=== PATIENT | female | born 1955 | race Caucasian/White ===

== ENCOUNTER → 2016-05-16 | Outpatient (CLI) | payer BC ==
[~2016-05-16] MED LIST: ASPI-587 PO; CHLS4PK PO; EST05TD TD; ESTR1PAT32 TD; OMEG1CAP74 PO; PRAV20TA PO; VALS1TAB43 PO; VALS1TAB80 PO; VLS80C PO
--- OUTSIDE RECORDS SUMMARY | 2016-05-16 14:59 | XMS REPORT | Continuity of Care Document ---
Author Author [facility] Organization [facility] Address Unknown Phone Unavailable Care Team Providers Care Accounts Payable Accountant Name Role Phone LONG ARROYO MD PCP Insurance Providers Payer Name Policy Number Subscriber Name Relationship [facility] [id number] Kenrick Schaffer I 01 Advance Directives Directive Response Recorded Date/Time Advance Directives No 08/26/14 7:25am Health Care Power of Pillowcase Sewer No 08/26/14 7:25am Organ Donor Yes 08/26/14 7:25am Resuscitation Status Full Code 08/26/14 7:25am Problems No known problems or medical conditions. Medications Medication Dose Route Sig Days/Qty Instructions Order Date Discontinued Date Status HCTZ/Valsartan 1 Each PO DAILY 07/03/10 07/04/10 Discontinued Estradiol 0.05 Mg TD Q7D 07/03/10 08/23/14 Discontinued Cholestyramine Resin 1 Pkt PO TWICE A DAY 30 Qty 07/04/10 08/23/14 Discontinued Valsartan 160 Mg PO DAILY 07/04/10 08/23/14 Discontinued Estradiol (Climara) 1 Each TD TWICE WEEKLY CHANGE ON FRIDAY AND Saturdays08/23/14 Active Valsartan/Hydrochlorothiazide 1 Each PO DAILY 08/23/14 Active Pravastatin Sodium 20 Mg PO BEDTIME 08/23/14 Active Aspirin 81 Mg PO DAILY 08/23/14 Active Stollings-3/Dha/Epa/Fish Oil 2,000 Mg PO DAILY 08/23/14 Active Social History Social History Problem Response Recorded Date/Time Alcohol Use Occasionally Uses 08/26/2014 7:25am Recreational Drug Use No 08/26/2014 7:25am Recent Foreign Travel No 08/26/2014 7:25am Smoking Status Former Smoker 08/26/2014 7:25am Query Response Start Date Stop Date Smoking Status Former Smoker 08/12/2014 Hospital Discharge Instructions No hospital discharge instructions. Plan of Care No plan of care. Functional Status No functional status results. Allergies, Adverse Reactions, Alerts Allergen Type Severity Reaction Status Last Updated No Known Drug Allergies Active 07/03/10 Immunizations No immunization records. Vital Signs Acute Vital Signs Vital Response Date/Time Temperature (Fahrenheit) 96.5 degrees F (97.6 - 99.5) Temperature (Calculated Celsius) 35.59305 degrees C (36.4 - 37.5) Temperature Source Temporal Pulse Rate (adult) 51 bpm (60 - 90) Respiratory Rate 16 bpm (12 - 24) O2 Sat by Pulse Oximetry 98 % (88 - 100) Blood Pressure 131/71 mm Hg Pain Pain Intensity 0 Height (Feet) 5 feet Height (Inches) 6.00 inches Height (Calculated Centimeters) 167.978978 cm Weight (Pounds) 173 pounds Weight (Calculated Grams) 87482.481 gm Weight (Calculated Kilograms) 78.740113 kilograms Calculated BMI 28.79 Results Laboratory Results Test Name Result Units Flags Reference Collection Date/Time Result Date/ Time Comments Sodium Level 134 MMOL/L L 135-145 08/23/2014 8:25am 08/23/2014 9:06am Potassium Level 3.7 MMOL/L 3.6-5.0 08/23/2014 8:25am 08/23/2014 9:06am Chloride Level 101 MMOL/L 98-107 08/23/2014 8:25am 08/23/2014 9:06am Carbon Dioxide Level 23 MMOL/L 21-32 08/23/2014 8:25am 08/23/2014 9: 06am Blood Urea Nitrogen 29 MG/DL H 7-18 08/23/2014 8:25am 08/23/2014 9:06am Creatinine 1.37 MG/DL H 0.60-1.30 08/23/2014 8:25am 08/23/2014 9:06am BUN/Creatinine Ratio 21 08/23/2014 8:25am 08/23/2014 9:06am Estimat Glomerular Filtration Rate 40 08/23/2014 8:25am 08/23/2014 9:06am GFR INTERPRETIVE DATA UNITS FOR ESTIMATED GFR (eGFR): mL/min/1.73 M2 REFERENCE RANGE FOR ESTIMATED GFR (eGFR) eGFR NORMAL eGFR >60 MODERATELY DECREASED eGFR 30-59 SEVERLY DECREASED eGFR 15-29 KIDNEY FAILURE <15 (OR DIALYSIS) Glucose Level 101 MG/DL 70-105 08/23/2014 8:25am 08/23/2014 9:06am Calcium Level 9.7 MG/DL 8.5-10.1 08/23/2014 8:25am 08/23/2014 9:06am Procedures Procedure Status Date Provider(s) Excision of lesion completed 08/26/14 SULEMAN LEON MD Tracing only of electrocardiogram completed 08/23/14 FIDEL DEJESUS DO Encounters Encounter Location Date/Time Registered [facility] 08/26/14 7:27am Registered Clinic [facility] 08/23/14 7:59am
--- NOTE | 2016-05-17 18:23 | Diagnostic Imaging Report ---
Bilateral screening mammogram. The current study was also evaluated with a Computer Aided Detection (CAD) system. INDICATION: Screening. No current complaints stated on the questionnaire. COMPARISON: 02/27/2015. FINDINGS: The breasts are composed of scattered fibroglandular densities. There are no developing masses, architectural distortion, or suspicious cluster of calcification. Allowing for technique and positional differences, no suspicious change is seen. IMPRESSION: No significant change. ACR BI-RADS Category 2: Benign findings. Result letter will be mailed to the patient. Note: At least 10% of breast cancer is not imaged by mammography. Dictated by: Dictated on workstation # [id number]
== END ==
LOC: RAD 14:56
PROVIDERS: ATTEND Nurse Practitioner Family
DX: Z12.31 Encounter for screening mammogram for malignant neoplasm of breast (principal)
CPT/HCPCS: 77067

== ENCOUNTER → 2016-09-12 | Outpatient (CLI) | payer BC ==
--- NOTE | 2016-09-12 19:46 | Diagnostic Imaging Report ---
EXAMINATION: Bilateral renal ultrasound. INDICATION: Chronic kidney disease. FINDINGS: The right kidney is 12.1 and the left kidney is 9.2 cm in length. There is no hydronephrosis or focal lesion seen. The left kidney demonstrates significant cortical atrophy. The urinary bladder appears unremarkable with the right side urine jet seen. The left side jet is not seen. IMPRESSION: Significant asymmetric cortical atrophy in the left kidney. Dictated by: Dictated on workstation # [id number]
== END ==
LOC: RAD 13:42
PROVIDERS: ATTEND Nurse Practitioner
DX: R80.9 Proteinuria, unspecified (principal); I12.9 Hypertensive chronic kidney disease with stage 1 through stage 4 chronic kidney disease, or unspecified chronic kidney disease; N18.3 Chronic kidney disease, stage 3 (moderate); E78.5 Hyperlipidemia, unspecified; E66.9 Obesity, unspecified; E87.1 Hypo-osmolality and hyponatremia; R73.01 Impaired fasting glucose
CPT/HCPCS: 76770

== ENCOUNTER → 2017-01-15 | Outpatient (CLI) | payer BC ==
--- NOTE | 2017-01-15 09:16 | Diagnostic Imaging Report ---
EXAMINATION: Renal vascular duplex ultrasound. INDICATION: Hypertension. FINDINGS: The right kidney is 11.3 and the left kidney is 7.3 cm in length. There is no hydronephrosis or focal lesion identified. The left kidney is small in size and demonstrates moderate cortical atrophy. The proximal left renal artery is obscured. The velocities at the mid and distal segments of the left renal artery are 88 and 85 cm/s. The right renal artery mid and distal segments are 75 and 121 cm/s. The resistive index in the right kidney is 0.63 to 0.66 and on the left side is 0.48. IMPRESSION: 1. Moderate atrophy of the left kidney. 2. The proximal renal arteries are obscured due to bowel gas bilaterally. Evaluation with CTA or MRA could be considered for better evaluation. Dictated by: Dictated on workstation # [id number]
== END ==
LOC: RAD 08:03
PROVIDERS: ATTEND Nurse Practitioner
DX: R80.9 Proteinuria, unspecified; E66.9 Obesity, unspecified; E78.5 Hyperlipidemia, unspecified; E87.1 Hypo-osmolality and hyponatremia; I12.9 Hypertensive chronic kidney disease with stage 1 through stage 4 chronic kidney disease, or unspecified chronic kidney disease; N18.3 Chronic kidney disease, stage 3 (moderate); R73.01 Impaired fasting glucose
CPT/HCPCS: 93975

== ENCOUNTER → 2020-01-28 | Outpatient (CLI) | payer BC ==
--- NOTE | 2020-01-28 13:05 | Diagnostic Imaging Report ---
PROCEDURE: US carotid duplex, bilateral. TECHNIQUE: Multiple real-time grayscale images were obtained over the carotid arteries in various projections, bilaterally. Additional spectral analysis and color Doppler duplex images were also obtained. INDICATION: Carotid bruit. There is mild plaquing noted throughout both carotid systems. Velocities are normal bilaterally. No velocity elevation or stenosis is seen apart from velocity elevation in the right and left external carotid arteries. This reaches 402 cm/s on the right and 203 cm/s on the left. Both vertebral arteries show antegrade flow. IMPRESSION: Ruto-rf-apltvqui bilateral carotid plaque. There is no evidence of a hemodynamically significant stenosis within either common or internal carotid arteries. Parameters based on the consensus panel Caal-Scale and Doppler ultrasound criteria published February 2003, Radiology, Volume 229. DOPPLER (peak systolic velocity M/S Right Left CCA 0.84 1.21 ICA Proximal 0.86 0.89 ICA Mid 1.08 1.12 ICA Distal 0.79 1.14 RATIO 1.3 0.9 ECA 4.02 2.03 VERT .31 .75 Dictated by: Dictated on workstation # [id number]
== END ==
LOC: CARD 11:39
PROVIDERS: ATTEND Family Medicine
DX: I11.9 Hypertensive heart disease without heart failure (principal)
CPT/HCPCS: 93306; 93880

== ENCOUNTER → 2020-05-31 | Outpatient (CLI) | payer BC ==
[~2020-05-31] VITALS: Ht 162 cm; Wt 84.0 kg
[~2020-05-31] MED LIST changes: +REGADENOSON 0.4 MG/5 ML SYR (LEXISCAN) IV ONE
[2020-05-31] MEDS: CATHETER FLUSH 10 ML SYR IV PRN ×2 (08:38→09:24)
[2020-05-31 09:22] VITALS: BP 158/85
--- NOTE | 2020-05-31 11:34 | Cardiology Stress Test Report ---
Stress Test Report Date of Procedure/Referring: Date of Procedure: May 31, 2020 PCP Dominic Laurent MD Admitting Physician Cesar Delacruz MD Indications: Chest pain Baseline Heart Rate: 75 Baseline Blood Pressure: Blood Pressure Systolic: 158 Blood Pressure Diastolic: 85 Baseline Vitals Vital Signs Date Time Temp Pulse Resp B/P (MAP) Pulse Ox O2 Delivery O2 Flow Rate FiO2 05/31/20 09:22 74 158/85 (109) 98 Baseline EKG: Baseline EKG: normal sinus rhythm Summary After explaining the procedure to the patient, she signed a consent and then brought to the stress nuclear laboratory. Patient received 0.4 mg Lexiscan for stress test, ECG, heart rate and blood pressure were monitored continuously. Resting and stress dose of radio tracer were injected, imaging was acquired and reviewed in short axis, horizontal long axis and vertical long axis views. TID: 1.12 SSS: 6 SDS: 3 EF: 76 1. Patient tolerated Lexiscan well, had mild chest pressure and shortness of breath after the injection, resolved spontaneously 2. No EKG changes noted during Lexiscan stress test 3. Breast attenuation with mild decreased uptake involving the mid to apical anterior wall and anterolateral wall with mild reversibility 4. Normal left ventricular size, EF 76 percent DOMINIC LAURENT MD May 31, 2020 11:33
== END ==
LOC: CARD 08:30
PROVIDERS: ATTEND Internal Medicine Cardiovascular Disease
DX: R07.9 Chest pain, unspecified (principal)
CPT/HCPCS: 78452; 93017; A9502

== ENCOUNTER 2020-06-07 09:00 | Day surgery (SDC) | payer BC ==
[~2020-06-07] VITALS: Ht 162 cm; Wt 86.0 kg
[2020-06-07] VITALS (10 sets, daily range): BP systolic 145–182; BP diastolic 67–101
[2020-06-07 07:20] LABS: HEMOGLOBIN 8.5 g/dL (11.5-16.0); MEAN PLATELET VOLUME 8.7 fL (9.0-12.2); WHITE BLOOD COUNT 3.5 10^3/uL (4.3-11.0)
[2020-06-07] MEDS: NS IV 1000 ML 1,000 ML IV SCH ×2 (07:22→09:19)
--- NOTE | 2020-06-07 07:32 | Diagnostic Imaging Report ---
Indication: Dyspnea, hypertension, coronary artery disease Upright chest shows normal heart size and vascularity. The lungs are clear. There is no effusion or pneumothorax. There is no bony abnormality. IMPRESSION: Normal chest. Dictated by: Dictated on workstation # [id number]
[2020-06-07 07:34] LABS: PROTHROMBIN TIME PATIENT 13.6 SEC (12.2-14.7)
[2020-06-07 07:43] LABS: BILIRUBIN,TOTAL 0.6 MG/DL (0.1-1.0); CREATININE SERUM 2.05 MG/DL (0.60-1.30); POTASSIUM 3.5 MMOL/L (3.6-5.0); TOTAL PROTEIN 7.8 GM/DL (6.4-8.2)
[~2020-06-07 09:00] MED LIST changes: +CHOL500049 PO; +DAPA5TAB PO; +DILT360C30 PO; +HEParin (CATH LAB) 2,000 ML IV ONE; +HYDR-3924 PO; +LIDOCAINE 1% INJ 20 ML 20 ML VIAL ONE; +MIDAZOLAM 5 MG/5 ML (VERSED) VIAL ONE; +NS IV 1000 ML 1,000 ML ONE; -REGADENOSON 0.4 MG/5 ML SYR (LEXISCAN) IV ONE; +fentaNYL INJECTION 100 MCG/2 ML AMP ONE
[2020-06-07] MEDS ORDERED: NITRO DRIP 25000 MCG/D5W 250 ML IV ONE (09:09)
[2020-06-07] MEDS ORDERED: HEParin 1000 UNIT/ML (10ML VIAL) FOR BOLUS ONE (09:09)
[2020-06-07] MEDS ORDERED: VERAPAMIL 5 MG/2 ML (CALAN) VIAL IV ONE (09:09)
[2020-06-07] MEDS ORDERED: NS IV 1000 ML 1,000 ML IV SCH (09:30)
--- NOTE | 2020-06-07 09:33 | Discharge Inst-Post CATH ---
Discharge Inst-CATH/EP Problems Reviewed?: Yes Post Cardiac Cath/EP D/C Inst Follow Up/Plan Appointment with Dr. HERNANDEZ's office in 4 weeks <b>CARDIAC CATH/EP PROCEDURE DISCHARGE INSTRUCTIONS</b> ACTIVITY * Go Home directly and rest. * Limit activity of the leg (or wrist if it was used) for 7 days including aerobics, swimming, jogging, bicycling, etc. * Restrict stair-climbing for 7 days if possible, if not, climb up with your non-cath leg, then bring together on the same step. * Avoid lifting, pushing, pulling or excessive movement of the affected extremity for 7 days. * Customary sexual activity may be resumed after 2 days-use caution not to use a position that strains or causes pain to the affected extremity. * No driving for 24 hours. * NO SMOKING. * Avoid straining for bowel movements for 7 days. * Gentle walking on level ground is allowed. * Returning to work will depend on the type of procedure and the results. Your doctor will discuss this with you. CALL YOUR DOCTOR FOR ANY OF THE FOLLOWING: *If bleeding from the puncture site occurs- Apply gentle pressure to site with clean cloth and call your doctor or EMS. * If a knot or lump forms under the skin, increases in size, or causes pain. * If bruising appears to be worsening or moving further down your leg instead of disappearing. * Temperature above 101 F. CARE OF YOUR GROIN INCISION; * Bruising or purple discoloration of the skin near the puncture site is common. * You may shower only, no bathtub bathing for 5 days. Be careful to avoid slipping as your leg may feel stiff. * If a closure device was used on your femoral artery, please see the attached guide regarding care of the device and your leg. * Leave dressing on FOR 24 hours. CARE OF YOUR WRIST INCISION; * Bruising or purple discoloration of the skin near the puncture site is common. * You may shower. * DO NOT submerge wrist. * Leave dressing on FOR 24 hours. DOMINIC HERNANDEZ MD Jun 07, 2020 09:33
--- NOTE | 2020-06-07 09:36 | Cardiac Cath Report ---
Cardiac Cath Report Physician (s)/Clerk Carrier (s) Physician DOMINIC HERNANDEZ MD Pre-Procedure Diagnosis Pre-Procedure Diagnosis: coronary artery disease Post-Procedure Note Procedure Start Date: Jun 07, 2020 Name of Procedure: Left heart catheterization Findings/Procedure Note PROCEDURE NOTE: 65-year-old lady with history of hypertension, has been having increasing dyspnea, had an abnormal stress test, scheduled for cardiac catheterization possible PTCA. After explaining the procedure to the patient, all pros and cons were explained, all questions were answered. The patient signed the consent and then she was placed on the cardiac catheterization laboratory. Groin was prepped SL fashion local anesthesia was used. Sheath placed in the right radial artery, Worth catheter was advanced to the left ventricular cavity, pressure was measured, pullback LV to aorta was done, intubated the right coronary artery and angiogram was done then turned to the left coronary artery and angiogram was done. At the end of the procedure the sheath was removed. Vascular band was used FINDINGS: Hemodynamics LV 144/11, end-diastolic pressure of 11 Aorta 148/59 mean of 93 ANATOMY: Left Main is free of obstructive disease Left Anterior Descending is slightly tortuous with no obstructive disease Left Circumflex has mild disease nonobstructive disease Right Coronory Artery is tortuous artery, dominant artery with no objective disease LV Gram was not done, pressure was measured CONCLUSION: 1. Mildly tortuous coronaries with no significant obstructive disease 2. Normal left ventricular end-diastolic pressure DISCUSSION AND RECOMMENDATION: Abnormal stress test is probably due to extracardiac attenuation, her symptoms are probably noncardiac in nature Anesthesia Type: Conscious Sedation Estimated blood loss (mL): 10 ml Contrast Amount: 12 ml Total Radiation Dose: 240 mGy Post-Procedure Diagnosis Post-operative diagnosis: Shortness of breath Coronary artery disease Chronic renal insufficiency Hypertension DOMINIC HERNANDEZ MD Jun 07, 2020 09:36
== END 2020-06-07 12:20 | disposition home or self-care (01) ==
LOC: CATH 09:00 → SURG 09:54 → CATH 12:20
PROVIDERS: ATTEND Internal Medicine Cardiovascular Disease
DX: I25.10 Atherosclerotic heart disease of native coronary artery without angina pectoris (principal); I10 Essential (primary) hypertension; I12.9 Hypertensive chronic kidney disease with stage 1 through stage 4 chronic kidney disease, or unspecified chronic kidney disease; N18.30 Chronic kidney disease, stage 3 unspecified; E78.2 Mixed hyperlipidemia; I65.29 Occlusion and stenosis of unspecified carotid artery; Z79.899 Other long term (current) drug therapy; Z87.891 Personal history of nicotine dependence
CPT/HCPCS: 71045; 80053; 80061; 85027; 85610; 85730; 87081; 93458; C1894; 36415

== ENCOUNTER → 2020-06-22 | Outpatient (CLI) | payer BC ==
[~2020-06-22] MED LIST changes: +ASPI-999 PO; -HEParin (CATH LAB) 2,000 ML IV ONE; -LIDOCAINE 1% INJ 20 ML 20 ML VIAL ONE; -MIDAZOLAM 5 MG/5 ML (VERSED) VIAL ONE; -NS IV 1000 ML 1,000 ML ONE; +OMEG-86 PO; +PRAV20TA3 PO; +RT-ALBUTEROL SULF 2.5 MG/3 ML PRE-MIX VIAL INH ONE; -fentaNYL INJECTION 100 MCG/2 ML AMP ONE
== END ==
LOC: RT 12:33
PROVIDERS: ATTEND Internal Medicine Cardiovascular Disease
DX: I10 Essential (primary) hypertension (principal); R09.89 Other specified symptoms and signs involving the circulatory and respiratory systems; R06.09 Other forms of dyspnea
CPT/HCPCS: 94060; 94726; 94729

== ENCOUNTER 2020-06-26 05:28 | Outpatient (RCR) | payer BC ==
[~2020-06-26] VITALS: Ht 162.6 cm; Wt 83.1 kg
== END 2020-06-26 09:09 | disposition home or self-care (01) ==
LOC: PREOP 05:28
PROVIDERS: ATTEND Surgery
DX: Z01.812 Encounter for preprocedural laboratory examination (principal); D64.9 Anemia, unspecified; Z20.822 Contact with and (suspected) exposure to COVID-19
CPT/HCPCS: 87635

== ENCOUNTER → 2020-06-26 | Outpatient (CLI) | payer BC ==
[~2020-06-26] MED LIST changes: -RT-ALBUTEROL SULF 2.5 MG/3 ML PRE-MIX VIAL INH ONE
--- NOTE | 2020-06-26 16:03 | Diagnostic Imaging Report ---
EXAMINATION: CT Chest without contrast. TECHNIQUE: Multiple contiguous axial images were obtained through the chest without the use of intravenous contrast. All CT scans use one or more of the following dose optimizing techniques: automated exposure control, MA and/or KvP adjustment based on a patient size and exam type, or iterative reconstruction. HISTORY: Dyspnea. Shortness of breath. Mid chest pain. COMPARISON: Chest radiograph on 06/07/2020. FINDINGS: The heart size is within normal limits. No pericardial effusion is present. There is calcified aortic and coronary atherosclerotic plaque without evidence of aneurysm. There is no mediastinal, hilar, or axillary lymphadenopathy. Hazy groundglass opacities are seen throughout both lungs with relative sparing of the periphery of the lungs. A nodule is seen in the superior aspect of the right lower lobe measuring 0.4 cm. No central endobronchial obstructing lesions are identified. There is no pleural effusion or pneumothorax. The osseous structures demonstrate no acute abnormalities. Limited views of the upper abdominal structures demonstrate no acute abnormalities. Both adrenal glands are unremarkable. IMPRESSION: 1. Hazy ground glass opacities throughout the lungs, which may represent infectious process. Hypersensitivity pneumonitis can also have this appearance. Recommend correlation with patient history. 2. Nodule in the right lower lobe measuring 0.4 cm. Consider follow-up in 6-12 months to ensure stability. Dictated by: Dictated on workstation # [id number]
== END ==
LOC: RAD 14:15
PROVIDERS: ATTEND Internal Medicine Critical Care Medicine
DX: Z13.83 Encounter for screening for respiratory disorder NEC (principal); R91.8 Other nonspecific abnormal finding of lung field; R91.1 Solitary pulmonary nodule
CPT/HCPCS: 71250

== ENCOUNTER 2020-06-28 12:09 | Day surgery (SDC) | payer BC ==
[~2020-06-28] VITALS: Ht 162.6 cm; Wt 84.1 kg
[2020-06-28] MEDS ORDERED: LACTATED RINGERS 1,000 ML IV ONE (12:14)
[2020-06-28 12:30] VITALS: BP 148/74
[2020-06-28] MEDS ORDERED: LACTATED RINGERS 1,000 ML IV STA (12:33)
[2020-06-28] MEDS ORDERED: HURRICAINE EXT TUBE (BENZOCAINE) XX PRN (12:45)
--- NOTE | 2020-06-28 14:24 | Progress Note-Pre Operative ---
Pre-Operative Progress Note H&P Reviewed The H&P was reviewed, patient examined and no changes noted. Time Seen by Provider: 14:22 Date H&P Reviewed: Jun 28, 2020 Time H&P Reviewed: 14:22 Pre-Operative Diagnosis: Iron deficiency anemia MEKA RESTREPO DO Jun 28, 2020 14:24
[2020-06-28] MEDS ORDERED: MIDAZOLAM 2 MG/2 ML (VERSED) VIAL ONE (14:30)
[2020-06-28] MEDS ORDERED: PROPOFOL INJECTION 50 ML IV ONE ×2 (14:30→15:04)
[2020-06-28] MEDS ORDERED: HURRICAINE EXT TUBE (BENZOCAINE) ONE (14:35)
--- NOTE | 2020-06-28 15:34 | Progress Note-Post Operative ---
Post-Operative Progess Note Surgeon (s)/Equipment Service Associate (s) Surgeon MEKA RESTREPO DO Equipment Service Associate: AXEL Rivas Pre-Operative Diagnosis Iron deficiency anemia Post-Operative Diagnosis duodenal ulcer gastritis hiatal hernia sigmoid polyp diverticula internal hemorrhoids Procedure & Operative Findings Date of Procedure 06/28/20 Procedure Performed/Findings EGD with bx Colon with cold bx Anesthesia Type IV sedation by MANUFACTURER REPRESENTATIVE Estimated Blood Loss Estimated blood loss (mL): scant Specimens/Packing Specimens Removed duodenal bx Antral bx body of stomach bx GE jxn bx Sigmoid colon polyp bx MEKA RESTREPO DO Jun 28, 2020 15:34
[2020-06-28 15:35] VITALS: BP 99/55
--- NOTE | 2020-06-28 15:35 | Endoscopy Discharge Instruct ---
Endo Procedure/Findings Findings 1.: Duodenal Ulcer, Gastritis 2.: Hiatal Hernia 3.: Polyp 4.: Diverticulosis, Internal Hemorrhoids Discharge Instructions - Activity: You might feel a little sleepy until tomorrow. This is due to the medicine you received to relax you. Until tomorrow, you should: NOT drive a car, operate machinery or power tools. NOT drink any alcoholic beverages. NOT make any important decisions or sign importortant papers. Do not return to work until tomorrow, unless otherwise instructed. Resume previous activities tomorrow. Diet: Start by taking liquids. If you tolerate liquids, advance to solid food. 1.: EGD in 6-8 weeks 2.: Colonscopy in 10 years Notify Physician - If you experience excessive bleeding, unusual abdominal pain, fever, or chest pain, contact your doctor immediately. MEKA RESTREPO DO Jun 28, 2020 15:35
[2020-06-28 15:40] VITALS: BP 121/56
--- NOTE | 2020-06-28 15:49 | Anesthesia-General Post-Op ---
MAC Patient Condition Mental Status/LOC: Same as Preop Cardiovascular: Satisfactory Nausea/Vomiting: Absent Respiratory: Satisfactory Pain: Controlled Complications: Absent Post Op Complications Complications None Follow Up Care/Instructions Patient Instructions None needed. Anesthesiology Discharge Order Discharge Order Patient is doing well, no complaints, stable vital signs, no apparent adverse anesthesia problems. No complications reported per nursing. ANIA BERMAN CRNA Jun 28, 2020 15:49
[2020-06-28 16:05] VITALS: BP 150/72
[2020-06-28 16:15] VITALS: BP 129/80
--- NOTE | 2020-06-28 21:54 | OPERATIVE REPORT ---
DATE OF SERVICE: PREOPERATIVE DIAGNOSIS: Iron deficiency anemia. POSTOPERATIVE DIAGNOSES: 1. Duodenal ulcers, gastritis, hiatal hernia, possible esophagitis. 2. Diverticula, sigmoid polyp and internal hemorrhoids. PROCEDURES: 1. EGD with biopsy. 2. Colonoscopy with cold biopsy. SURGEON: Kumar Quinteros, DO DIDACTIC PROGRAM IN DIETETICS DIRECTOR: Jairo Brown MS3. ANESTHESIA: IV sedation by the DATABASE ADMIN. SPECIMEN: Biopsy from duodenum, biopsy of the antrum, biopsy of body of stomach, biopsy of the GE junction as well as biopsy of sigmoid polyp. BLOOD LOSS: Scant. FLUIDS: Per anesthesia. POSTOPERATIVE CONDITION: Stable. INDICATION FOR PROCEDURE: The patient is a 65-year-old female who has some iron deficiency anemia and needs a workup. FINDINGS: The patient had what looked like small duodenal ulcers. She also had some mild gastritis, hiatal hernia, questionable esophagitis. In the colon, she had a polyp in the sigmoid colon, diverticula and internal hemorrhoids. PROCEDURE NOTE: After informed consent was obtained, the patient was brought to the endoscopy suite, placed in bed in left lateral decubitus position. She was administered IV sedation by the DATABASE ADMIN who then monitored her vitals the entire time, heart rate, blood pressure and pulse ox and the scope was inserted, started with the EGD, placed the scope down the mouth through the esophagus into the stomach, saw some mild gastritis, took a picture and then pushed in the duodenum. In the duodenum, there was some small duodenal ulcers just past the pylorus and the duodenal bulb, did not see any bleeding in the second or third portion of the duodenum, took pictures through here and then pulled back, did a biopsy of the area looked like it was an ulcer. Pulled back and did a biopsy of the antrum. Retroflexed the scope, saw hiatal hernia, did a biopsy of body of stomach, then pulled the scope into the GE junction, did a biopsy, then pushed the scope in the stomach, suctioned all the air out and then pulled the scope up the esophagus and out the mouth. Switched camera, switched gloves, went down below, started the colonoscopy. Pushed all the way into about 150 cm, able to get all the way to the cecum. On the way in, noted some diverticula, lot of large ones in the sigmoid and descending colon, saw some on the right side as well and able to get to the cecum, took a picture of appendiceal orifice, noted the ileocecal valve and then slowly withdrew the scope insufflating the circumferential dye looking at the cecum up the ascending colon to the hepatic flexure, then down the transverse colon, splenic flexure, into the descending colon and down into the sigmoid. In the sigmoid, saw small flat polyp, was pale, did a biopsy of this and then continued down into the rectum, retroflexed in the rectal vault, saw some minimal internal hemorrhoids, took a picture and then removed the scope. The patient tolerated the procedure. She was recovered in endoscopy suite. Job ID: [id number] DocumentID: [id number] Dictated Date: 06/28/2020 15:33:08 Barn Operator Date: 06/28/2020 21:54:03 Dictated By: KUMAR QUINTEROS DO
== END 2020-06-28 16:15 | disposition home or self-care (01) ==
LOC: ENDO 12:09
PROVIDERS: ATTEND Surgery
DX: K63.5 Polyp of colon (principal); K44.9 Diaphragmatic hernia without obstruction or gangrene; K64.8 Other hemorrhoids; K57.30 Diverticulosis of large intestine without perforation or abscess without bleeding; K29.70 Gastritis, unspecified, without bleeding; K20.90 Esophagitis, unspecified without bleeding; K26.9 Duodenal ulcer, unspecified as acute or chronic, without hemorrhage or perforation; I12.9 Hypertensive chronic kidney disease with stage 1 through stage 4 chronic kidney disease, or unspecified chronic kidney disease; N18.30 Chronic kidney disease, stage 3 unspecified; E78.2 Mixed hyperlipidemia; I65.23 Occlusion and stenosis of bilateral carotid arteries; J44.9 Chronic obstructive pulmonary disease, unspecified; D63.1 Anemia in chronic kidney disease; Z79.51 Long term (current) use of inhaled steroids; Z79.899 Other long term (current) drug therapy
CPT/HCPCS: 88305

== ENCOUNTER 2020-07-14 09:54 | Outpatient (RCR) | payer BC ==
[2020-06-23] MEDS: IRON SUCROSE 200 MG/10 ML (VENOFER) VIAL IV SCH (10:32)
[2020-06-23 10:58] VITALS: BP 116/47
[2020-06-30] MEDS: IRON SUCROSE 200 MG/10 ML (VENOFER) VIAL IV SCH (10:25)
[2020-06-30 10:29] VITALS: BP 136/52
[2020-07-07 09:55] VITALS: BP 128/44
[2020-07-07] MEDS: IRON SUCROSE 200 MG/10 ML (VENOFER) VIAL IV SCH (10:15)
[~2020-07-14] VITALS: Ht 165 cm; Wt 84.1 kg
[2020-07-14 09:50] VITALS: BP 157/62
[~2020-07-14 09:54] MED LIST changes: +IRON SUCROSE 200 MG/10 ML (VENOFER) VIAL IV ONE
== END 2020-07-14 11:03 | disposition home or self-care (01) ==
LOC: SDC 09:54
PROVIDERS: ATTEND Family Medicine
DX: D50.8 Other iron deficiency anemias (principal)
CPT/HCPCS: 96365

== ENCOUNTER → 2020-08-04 | Outpatient (CLI) | payer BC ==
[~2020-08-04] MED LIST changes: -IRON SUCROSE 200 MG/10 ML (VENOFER) VIAL IV ONE
--- NOTE | 2020-08-04 17:26 | Diagnostic Imaging Report ---
PROCEDURE: MRI lumbar spine. TECHNIQUE: Multiplanar, multisequence MRI of the lumbar spine was performed without contrast. DATE: August 04, 2020. COMPARISON: MRI lumbar spine October 25, 2015. INDICATION: 65-year-old female, low back pain, left lower extremity numbness. FINDINGS: The alignment of the lumbar spine is unremarkable. There is no evidence of a diffuse marrow infiltrating or replacing process. There is no compression deformity or other fracture. The visualized cord and conus medullaris is unremarkable and terminates at the T12-L1 level. There is mild disc height loss at L4-L5. There is moderate disc height loss at L5-S1. L1-L2: There is a very small annular tear and minimal diffuse disc bulge. The facet joints and ligamentum flavum are unremarkable. There is no foraminal narrowing. There is no spinal canal stenosis. L2-L3: There is a small right foraminal disc protrusion. There is mild narrowing of the right lateral recess. The facet joints and ligamentum flavum are unremarkable. There is mild right foraminal narrowing. There is no spinal canal stenosis. L3-L4: There is no disc bulge. There are mild bilateral facet degenerative changes with ligamentum flavum hypertrophy. There is very mild right foraminal narrowing. There is no spinal canal stenosis. L4-L5: There is mild diffuse disc bulge. There are right facet degenerative changes. There is moderate foraminal narrowing. There is no spinal canal stenosis. L5-S1: There is diffuse disc bulge. There are mild bilateral facet degenerative changes. There is no foraminal narrowing. There is no spinal canal stenosis. There is severe atrophy of the left kidney. IMPRESSION: 1. Multilevel disc and facet degenerative changes of the lumbar spine, as described level by level above. 2. Severe atrophy of the left kidney. Dictated by: Dictated on workstation # [id number]
== END ==
LOC: RAD 16:15
PROVIDERS: ATTEND Family Medicine
DX: M51.27 Other intervertebral disc displacement, lumbosacral region (principal); M47.816 Spondylosis without myelopathy or radiculopathy, lumbar region; M51.26 Other intervertebral disc displacement, lumbar region; N26.1 Atrophy of kidney (terminal)
CPT/HCPCS: 72148

== ENCOUNTER → 2020-09-27 | Outpatient (CLI) | payer BC ==
--- NOTE | 2020-09-27 16:59 | Diagnostic Imaging Report ---
EXAMINATION: CT chest without contrast. TECHNIQUE: Multiple contiguous axial images were obtained through the chest without the use of intravenous contrast. All CT scans use one or more of the following dose optimizing techniques: automated exposure control, MA and/or KvP adjustment based on patient size and exam type or iterative reconstruction. HISTORY: Nonspecific abnormal finding. COMPARISON: 06/26/2020 FINDINGS: There is no edema or pneumonia. No pleural effusion. No pneumothorax. 4 mm right lower lobe nodule is unchanged. Previously seen groundglass has resolved. There is no axillary or supraclavicular lymphadenopathy. There is no mediastinal lymphadenopathy. Heart size is normal. There are mild coronary artery calcifications. No pericardial effusion. Aorta is normal in caliber. Limited views of the upper abdomen show atrophy of the left kidney. Small amount of focal fat is present at the falciform ligament. There are no suspicious osseous lesions. IMPRESSION: 1. Resolution of previously seen groundglass, lungs are now clear. 2. Stable 4 mm right lower lobe pulmonary nodule. According to the Fleischner Society guidelines: In a low risk patient, no routine follow up is recommended. In a high risk patient, consider optional CT at 12 months. Dictated by: Dictated on workstation # [id number]
== END ==
LOC: RAD 15:22
PROVIDERS: ATTEND Internal Medicine Critical Care Medicine
DX: R91.1 Solitary pulmonary nodule (principal); R91.8 Other nonspecific abnormal finding of lung field
CPT/HCPCS: 71250

== ENCOUNTER → 2020-10-20 | Outpatient (CLI) | payer BC ==
--- NOTE | 2020-10-20 16:27 | Diagnostic Imaging Report ---
INDICATION: Spondylosis. TIME OF EXAM: 1:48 p.m. AP and lateral as well as lateral flexion and extension views were obtained of the lumbar spine. FINDINGS: There is normal curvature of the lumbar spine. There is minimal anterolisthesis of L3 on L4 on the neutral view. The listhesis appears fairly similar at this level on both the flexion and extension views. No definite motion is identified. Vertebral body heights are maintained. No acute compression fracture is seen. There is multilevel degenerative disc disease with variable disc space narrowing and marginal spurring. There is lower lumbar facet arthropathy. Atherosclerotic calcifications in the abdominal aorta are noted. IMPRESSION: Lumbar spondylosis as well as L3-L4 listhesis. No definite motion during flexion or extension maneuvers is identified. Dictated by: Dictated on workstation # [id number]
== END ==
LOC: RAD 13:15
PROVIDERS: ATTEND Nurse Practitioner Pediatrics
DX: M47.816 Spondylosis without myelopathy or radiculopathy, lumbar region (principal); M43.16 Spondylolisthesis, lumbar region
CPT/HCPCS: 72110

== ENCOUNTER 2020-11-22 14:50 | Outpatient (RCR) | payer BC ==
[2020-10-31 13:34] VITALS: BP 128/51
[2020-11-07] MEDS: IRON SUCROSE 200 MG/10 ML (VENOFER) VIAL IV SCH (13:25)
[2020-11-07 13:55] VITALS: BP 123/57
[2020-11-14 13:00] VITALS: BP 143/61
[2020-11-14] MEDS: IRON SUCROSE 200 MG/10 ML (VENOFER) VIAL IV SCH (13:34)
[~2020-11-22 14:50] MED LIST changes: +IRON SUCROSE 200 MG/10 ML (VENOFER) VIAL IV ONE
[2020-11-22] MEDS ORDERED: IRON SUCROSE 200 MG/10 ML (VENOFER) VIAL IV SCH (15:00)
[2020-11-22 16:02] VITALS: BP 143/61
== END 2020-11-22 16:02 | disposition home or self-care (01) ==
LOC: SDC 14:50
PROVIDERS: ATTEND Family Medicine
DX: D50.8 Other iron deficiency anemias (principal); R53.83 Other fatigue
CPT/HCPCS: 96365

== ENCOUNTER → 2021-07-04 | Outpatient (CLI) | payer BC ==
[~2021-07-04] MED LIST changes: -IRON SUCROSE 200 MG/10 ML (VENOFER) VIAL IV ONE
--- NOTE | 2021-07-04 11:59 | Diagnostic Imaging Report ---
INDICATION: Chronic cough. PA and lateral chest FINDINGS: Heart size and pulmonary vascularity are normal. Lungs are clear. There are no effusions or pneumothoraces. IMPRESSION: No acute abnormalities in the chest. Dictated by: Dictated on workstation # [id number]
== END ==
LOC: RAD 11:00
PROVIDERS: ATTEND Family Medicine
DX: R05.3 Chronic cough (principal); R91.1 Solitary pulmonary nodule
CPT/HCPCS: 71046

== ENCOUNTER → 2021-10-17 | Outpatient (CLI) | payer BC ==
--- NOTE | 2021-10-17 16:19 | Diagnostic Imaging Report ---
PROCEDURE: MRI lumbar spine. TECHNIQUE: Multiplanar, multisequence MRI of the lumbar spine was performed without contrast. INDICATION: Chronic low back pain. COMPARISON: Lumbar spine radiographs from 10/20/2020. FINDINGS: There are five lumbar-type vertebral bodies for the purposes of this report. Grade 1 anterolisthesis of L3 on L4. Vertebral body heights are preserved. Modic type II degenerative endplate changes throughout the lumbar spine. There are Modic type I degenerative endplate changes in the inferior endplate of T11. No abnormal signal in the conus which terminates at L1. Normal morphology of the cauda equina. Visualized pelvis and paravertebral soft tissues demonstrate no acute findings. Partially visualized atrophic left kidney. L1-L2: No spinal canal, lateral recess or neural foraminal narrowing. L2-L3: Mild facet arthropathy. Mild bilateral lateral recess and right neural foraminal narrowing. No spinal canal narrowing. L3-L4: Prolific facet arthropathy and the anterolisthesis result in mild spinal canal narrowing. No lateral recess narrowing. Mild right neural foraminal narrowing. L4-L5: Annular disc bulging and facet arthropathy result in moderate bilateral lateral recess narrowing. Kwps-iy-uvhnnysh spinal canal narrowing. Moderate bilateral neural foraminal narrowing. L5-S1: Central disc protrusion results in mild spinal canal and bilateral lateral recess narrowing. Moderate left and mild right neural foraminal narrowing. IMPRESSION: 1. Spondylotic changes result in scattered high-grade lateral recess and neural foraminal narrowing, detailed above. 2. There is hujy-dz-eiolvqas spinal canal stenosis at L4-L5. No more significant spinal canal stenosis. 3. No acute osseous findings. Modic type I degenerative endplate changes in the inferior endplate of T11. Dictated by: Dictated on workstation # [id number]
--- NOTE | 2021-10-17 16:27 | Diagnostic Imaging Report ---
INDICATION: Low back pain. Time of Exam: 2:50 PM Correlation is made with prior exam from 10/20/2020. Curvature of the lumbar spine is normal. Minimal anterolisthesis of L3 on L4 is again noted. Vertebral body heights are maintained without evidence of acute compression fracture. There is generalized degenerative disc disease, greatest at L4-L5 and L5-S1 levels. There is multilevel facet arthropathy. Flexion and extension views were obtained. No significant motion is identified at any level of the lumbar spine. Abdominal aorta is calcified. IMPRESSION: Lumbar spondylosis and L3-L4 spondylolisthesis, similar to exam from 10/20/2020. No definite motion during flexion-extension maneuvers is identified. Dictated by: Dictated on workstation # [id number]
== END ==
LOC: RAD 14:08
DX: M43.17 Spondylolisthesis, lumbosacral region (principal); M47.816 Spondylosis without myelopathy or radiculopathy, lumbar region; M43.16 Spondylolisthesis, lumbar region; M48.061 Spinal stenosis, lumbar region without neurogenic claudication; M51.26 Other intervertebral disc displacement, lumbar region; M51.27 Other intervertebral disc displacement, lumbosacral region
CPT/HCPCS: 72110; 72148

== ENCOUNTER → 2022-04-26 | Outpatient (CLI) | payer BC | LOC: CARD 09:53 | PROVIDERS: ATTEND Physician Assistant | DX: I11.9 Hypertensive heart disease without heart failure (principal) | CPT/HCPCS: 93306 ==

== ENCOUNTER 2022-07-20 10:19 | Emergency (ER) | payer BC, MEDICARE ==
[~2022-07-20] VITALS: Ht 162 cm; Wt 90.0 kg
--- NOTE | 2022-07-20 10:22 | ED Respiratory ---
General Chief Complaint: Respiratory Problems Stated Complaint: SOA Source: patient History of Present Illness Date Seen by Provider: Jul 20, 2022 Time Seen by Provider: 10:25 Initial Comments PT ARRIVES VIA POV--[place] [facility] [place] SHE HAS BEEN SICK SINCE FRIDAY WITH: -PRODUCTIVE COUGH WITH CLEAR SPUTUM -SHORTNESS OF BREATH--WORSE WITH LAYING FLAT OR WITH EXERTION -NASAL CONGESTION AND CLEAR RUNNY NOSE NO FEVER / SWEATS / CHILLS NO CHEST PAIN OR PAIN WITH BREATHING NO SWELLING OF LEGS/FEET OR PAIN IN CALVES NO GI SYMPTOMS NO LOSS OF TASTE/SMELL GRANDSON HAS BEEN ILL WITH SAME THIS PAST WEEK. HE DOES NOT LIVE WITH PT. WENT TO DR. LYSSA BO'S OFFICE ON FRIDAY, NO TESTS WERE DONE. GIVEN RX FOR A COUGH MEDICATION--BROMFED DM AND ANTIBIOTIC--OMNICEF. NO IMPROVEMENT IN SYMPTOMS SHE HAS HAD THIS BEFORE DENIES ANY CHRONIC LUNG PROBLEMS SUCH ASTHMA/COPD/EMPHYSEMA/CHRONIC BRONCHITIS SHE HAS HISTORY OF HTN, BUT NO HISTORY OF ANY HEART PROBLEMS SHE HAS STAGE 4 KIDNEY DISEASE--NO DIALYSIS. PT IS A FORMER SMOKER-1/2 PPD, QUIT 20 YEARS AGO. OCCASIONAL ETOH. DENIES DRUG USE SHE HAS HAD COVID VACCINE X 4, AND FLU VACCINE FOR THIS SEASON PCP: DR. LYSSA BO Allergies and Home Medications Allergies Coded Allergies: No Known Drug Allergies (Unverified , 07/03/10) Patient Home Medication List Home Medication List Reviewed: Yes Aspirin (Aspirin) 81 Mg Tab.chew, 81 MG PO DAILY, (Reported) Entered as Reported by: CLEMENTE PELLETIER on 06/22/20 1222 Benzonatate (Tessalon Perles) 100 Mg Capsule, 200 MG PO TID Prescribed by: CHARLI RAMAN on 07/20/22 1145 Budesonide/Formoterol Fumarate (Symbicort 160-4.5 Mcg Inhaler) 160 Mcg-4.5 Mcg/Actuation Hfa.aer.ad, 2 PUFF IH BID Prescribed by: CHARLI RAMAN on 07/20/22 1145 Cholecalciferol (Vitamin D3) (Vitamin D3) 1,250 Mcg Capsule, 1,000 MCG PO DAILY, (Reported) Entered as Reported by: MEKA MUNOZ on 06/07/20 0734 Dapagliflozin Propanediol (Farxiga) 5 Mg Tablet, 5 MG PO DAILY, (Reported) Entered as Reported by: MEKA MUNOZ on 06/07/20 0734 Diltiazem HCl (Diltiazem ER) 360 Mg Capsule.er, 360 MG PO DAILY, (Reported) Entered as Reported by: MEKA MUNOZ on 06/07/20 0734 Doxycycline Hyclate (Doxycycline Hyclate) 100 Mg Tablet, 100 MG PO BID Prescribed by: CHARLI RAMAN on 07/20/22 1145 Hydralazine HCl (Hydralazine HCl) 50 Mg Tablet, 50 MG PO DAILY, (Reported) Entered as Reported by: CLEMENTE PELLETIER on 06/22/20 1219 Ipratropium/Albuterol Sulfate (Iprat-Albut 0.5-3(2.5) mg/3 ml) 0.5 Mg-3 Mg (2.5 Mg Base)/3 Ml Ampul.neb, 3 ML IH Q4H PRN for SHORTNESS OF BREATH Prescribed by: CHARLI RAMAN on 07/20/22 1145 Methylprednisolone (Medrol) 4 Mg Tab.ds.pk, 4 MG PO UD Prescribed by: CHARLI RAMAN on 07/20/22 1145 [place]-3/Dha/Epa/Dpa/Fish Oil ([place]-3 2100 Softgel) 1 Each Capsule, 2 EACH PO DAILY, (Reported) Entered as Reported by: CLEMENTE PELLETIER on 06/22/20 1222 Pravastatin Sodium (Pravastatin Sodium) 20 Mg Tablet, 20 MG PO DAILY, (Reported) Entered as Reported by: CLEMENTE PELLETIER on 06/22/20 1222 Promethazine/Dextromethorphan (Promethazine-Dm Syrup) 6.25 Mg-15 Mg/5 Ml Syrup, 5 ML PO Q4H Prescribed by: CHARLI RAMAN on 07/20/22 1145 Valsartan/Hydrochlorothiazide (Valsartan-Hctz 320-25 mg Tab) 1 Each Tablet, 1 EACH PO DAILY, (Reported) Entered as Reported by: CLEMENTE PELLETEIR on 06/22/20 1222 Review of Systems Review of Systems Constitutional: no symptoms reported; No chills, No diaphoresis, No fever EENTM: see HPI, nose congestion; No throat pain Respiratory: see HPI, cough, dyspnea on exertion, orthopnea, phlegm, short of breath Cardiovascular: no symptoms reported; No chest pain, No edema, No palpitations, No syncope Gastrointestinal: no symptoms reported Genitourinary: no symptoms reported Musculoskeletal: no symptoms reported Skin: no symptoms reported Psychiatric/Neurological: No Symptoms Reported Hematologic/Lymphatic: No Symptoms Reported Immunological/Allergic: no symptoms reported Past Juxwpsj-Hhpocz-Xgdyqn Hx Patient Social History Tobacco Use?: Yes Tobacco type used: Cigarettes Smoking Status: Former Smoker Substance use?: No Alcohol Use?: Yes Alcohol Frequency: Once in a while Past Medical History Surgeries: Yes (SKIN CANCER REMOVED FROM LEG) Hysterectomy, Oophorectomy Respiratory: No Cardiac: Yes Hypertension Neurological: No Reproductive Disorders: Yes Female Reproductive Disorders: 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, 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 Genitourinary: Yes (STAGE 4 KIDNEY DISEASE--NO DIALYSIS) Gastrointestinal: Yes (GASTRITIS) Gastroesophageal Reflux, Diverticulosis, Hemorrhoids, Polyps, Hiatal Hernia, Ulcer Musculoskeletal: No Endocrine: No HEENT: No Cancer: Yes Skin Did You Recieve Any Treatments: Yes What Type of Treatment Did You: Surgical Intervention SQUAMOUS CELL CANCER REMOVED FROM LEFT THIGH 08/2014 Psychosocial: No Integumentary: No Blood Disorders: No Family Medical History SOCIAL HISTORY: -SMOKED 1/2 PPD, QUIT 20 YEARS AGO -ETOH--OCCASIONAL USE -DRUGS--DENIES USE PAST SURGICAL HISTORY: -HYSTERECTOMY / BILATERAL SALPINGO-OOPHORECTOMY -SKIN CANCER-SQUAMOUS CELL CANCER--REMOVED FROM LEFT THIGH 08/[address] LEON -CARDIAC CATH 06/07/[address] HERNANDEZ: CONCLUSION: 1. Mildly tortuous coronaries with no significant obstructive disease 2. Normal left ventricular end-diastolic pressure -EGD/COLONOSCOPY 06/28/[address] RESTREPO Pre-Operative Diagnosis Iron deficiency anemia Post-Operative Diagnosis duodenal ulcer gastritis hiatal hernia sigmoid polyp diverticula internal hemorrhoids Physical Exam Vital Signs - First Documented 07/20/22 07/20/22 10:25 11:40 Temp 37.1 Pulse 79 Resp 20 B/P (MAP) 141/60 (87) Pulse Ox 95 O2 Delivery Room Air O2 Flow Rate 0 Capillary Refill : Height: '" Weight: lbs. oz. kg; BMI Method: General Appearance: WD/WN, no apparent distress, other (WALKS IN ON HER OWN WITHOUT DIFFICULTY) HEENT: PERRL/EOMI, pharynx normal, other (NASAL CONGESTION, CLEAR POST NASAL DRAINAGE. 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, no motor/sensory deficits, alert, normal mood/affect, oriented x 3 Skin: normal color, warm/dry Progress/Results/Core Measures Suspected Sepsis SIRS Temperature: Pulse: Respiratory Rate: Laboratory Tests 07/20/22 10:40: White Blood Count 6.6 Blood Pressure / Mean: Laboratory Tests 07/20/22 10:40: Creatinine 2.45H, INR Comment 1.0, Platelet Count 277, Total Bilirubin 0.4 Results/Orders Lab Results Laboratory Tests Test 07/20/22 10:30 07/20/22 10:40 Range/Units Influenza Type A (RT-PCR) Not Detected Not Detecte Influenza Type B (RT-PCR) Not Detected Not Detecte SARS-CoV-2 RNA (RT-PCR) Not Detected Not Detecte White Blood Count 6.6 4.3-11.0 10^3/uL Red Blood Count 4.16 3.80-5.11 10^6/uL Hemoglobin 12.3 11.5-16.0 g/dL Hematocrit 36 35-52 % Mean Corpuscular Volume 87 80-99 fL Mean Corpuscular Hemoglobin 30 25-34 pg Mean Corpuscular Hemoglobin Concent 34 32-36 g/dL Red Cell Distribution Width 12.5 10.0-14.5 % Platelet Count 277 130-400 10^3/uL Mean Platelet Volume 10.1 9.0-12.2 fL Immature Granulocyte % (Auto) 1 % Neutrophils (%) (Auto) 83 H 42-75 % Lymphocytes (%) (Auto) 6 L 12-44 % Monocytes (%) (Auto) 8 0-12 % Eosinophils (%) (Auto) 1 0-10 % Basophils (%) (Auto) 1 0-10 % Neutrophils # (Auto) 5.5 1.8-7.8 10^3/uL Lymphocytes # (Auto) 0.4 L 1.0-4.0 10^3/uL Monocytes # (Auto) 0.6 0.0-1.0 10^3/uL Eosinophils # (Auto) 0.1 0.0-0.3 10^3/uL Basophils # (Auto) 0.0 0.0-0.1 10^3/uL Immature Granulocyte # (Auto) 0.0 0.0-0.1 10^3/uL Neutrophils % (Manual) 90 % Lymphocytes % (Manual) 4 % Monocytes % (Manual) 6 % Platelet Estimate ADEQUATE Blood Morphology Comment NORMAL Prothrombin Time 13.9 12.2-14.7 SEC INR Comment 1.0 0.8-1.4 Activated Partial Thromboplast Time 37 H 24-35 SEC Sodium Level 130 L 135-145 MMOL/L Potassium Level 4.0 3.6-5.0 MMOL/L Chloride Level 94 L 98-107 MMOL/L Carbon Dioxide Level 24 21-32 MMOL/L Anion Gap 12 5-14 MMOL/L Blood Urea Nitrogen 33 H 7-18 MG/DL Creatinine 2.45 H 0.60-1.30 MG/DL Estimat Glomerular Filtration Rate 21 BUN/Creatinine Ratio 13 Glucose Level 88 70-105 MG/DL Calcium Level 10.0 8.5-10.1 MG/DL Corrected Calcium 9.7 8.5-10.1 MG/DL Magnesium Level 2.5 H 1.6-2.4 MG/DL Total Bilirubin 0.4 0.1-1.0 MG/DL Aspartate Amino Transf (AST/SGOT) 18 5-34 U/L Alanine Aminotransferase (ALT/SGPT) 19 0-55 U/L Alkaline Phosphatase 74 40-136 U/L Total Creatine Kinase 83 29-168 U/L Creatine Kinase MB 0.7 <6.6 NG/ML Myoglobin 146.9 H 10.0-92.0 NG/ML Troponin I < 0.028 <0.028 NG/ML B-Type Natriuretic Peptide 34.5 <100.0 PG/ML Total Protein 7.3 6.4-8.2 GM/DL Albumin 4.4 3.2-4.5 GM/DL My Orders Orders - CHARLI RAMAN DO Ed Iv/Invasive Line Start (07/20/22 10:22) Ekg Tracing (07/20/22 10:22) O2 (07/20/22 10:22) Monitor-Rhythm Ecg Trace Only (07/20/22 10:22) Bnp [place] (07/20/22 10:22) Cbc With Automated Diff (07/20/22 10:22) Comprehensive Metabolic Panel (07/20/22 10:22) Creatine Kinase (07/20/22 10:22) Creatine Kinase Mb (07/20/22 10:22) Magnesium (07/20/22 10:22) Protime With Inr (07/20/22 10:22) Partial Thromboplastin Time (07/20/22 10:22) Myoglobin Serum (07/20/22 10:22) Troponin I [place] (07/20/22 10:22) Chest 1 View, Ap/Pa Only (07/20/22 10:22) Covid 19 Inhouse Test (07/20/22 10:22) Influenza A And B By Pcr (07/20/22 10:22) Isolation Central Supply Req (07/20/22 10:22) Manual Differential (07/20/22 10:40) Ceftriaxone 1 Gm Pre-Mix (Rocephin 1 Gm (07/20/22 11:30) Azithromycin Injection (Zithromax Inject (07/20/22 11:30) Albuterol/Ipra Inhalation Soln (Duoneb I (07/20/22 11:30) Dexamethasone Injection (Decadron Injec (07/20/22 11:30) Rt Request For Service (07/20/22 11:28) Methylprednisolone Sod Succ (Solu-Medrol (07/20/22 11:28) Svn Small Volume Nebulizer (07/20/22 11:28) Breathing Machine Home Use-Dme (07/20/22 11:39) Medications Given in ED Current Medications Medications Dose Ordered Sig/Benjamin Route Start Time Stop Time Status Last Admin Dose Admin Albuterol/ Ipratropium 3 ml ONCE ONCE INH 07/20/22 11:30 07/20/22 11:31 DC 07/20/22 11:40 3 ML Azithromycin 500 mg/Sodium Chloride 255 ml @ 250 mls/hr ONCE ONCE IV 07/20/22 11:30 07/20/22 12:31 DC 07/20/22 12:18 250 MLS/HR Ceftriaxone Sodium/Dextrose 50 ml @ 100 mls/hr ONCE ONCE IV 07/20/22 11:30 07/20/22 11:59 DC 07/20/22 12:05 100 MLS/HR Dexamethasone Sodium Phosphate 20 mg ONCE ONCE IH 07/20/22 11:30 07/20/22 11:31 DC 07/20/22 11:40 20 MG Vital Signs/I&O 07/20/22 07/20/22 07/20/22 07/20/22 10:25 11:40 12:30 13:26 Temp 37.1 37.1 Pulse 79 79 Resp 20 20 B/P (MAP) 141/60 (87) 144/66 Pulse Ox 95 94 94 O2 Delivery Room Air Room Air Room Air Room Air O2 Flow Rate 0 0 0 0 0 Capillary Refill : Progress Note : Progress Note PPE WORN COVID AND FLU TESTING DONE O2 SATS MID TO UPPER 90'S ON ROOM AIR ON ARRIVAL AFEBRILE, NORMAL HR IN 70'S, BP 141/60 OCCASIONAL LOOSE COUGH NOTED NO DYSPNEA NO HYPOXIA NO FEVER VITALS STABLE. NO EVIDENCE OF ACUTE CORONARY SYNDROME, NO PNEUMONIA, NO CHF, NO OBVIOUS EVIDENCE OF P.E.--NO HYPOXIA, NO TACHYCARDIA, NO DYSPNEA, NO PAIN WITH BREATHING, NO PALPITATIONS, NO DIZZINESS OR SYNCOPE--CR IS TOO HIGH TO DO CT CHEST ANGIOGRAM, AND NO NUCLEAR MEDICINE AVAILABLE AT THIS TIME FOR V/Q SCAN. PT HAS BRONCHITIS SYMPTOMS BASED ON HISTORY OF ILLNESS AND EXAM. WILL CHANGE ANTIBIOTICS, START STEROIDS AND INHALER AND NEBULIZER. NO EVIDENCE OF SEPSIS, AND DUE TO POOR RENAL FUNCTION, DO NOT WANT TO AGGRESSIVELY HYDRATE PT. PRIOR TO DISMISSAL, PT STATES SHE HAS 2 INHALERS AT HOME THAT SHE USES ALL THE TIME AND HAS FOR YEARS FOR BRONCHITIS--DOES NOT KNOW NAMES OF THEM, THEY ARE NOT ON HER MEDICATION LIST, NOR ON MED RECONCILIATION. SHE DOES NOT HAVE A SPACER/DOES NOT KNOW WHAT SPACER IS. SPACER SENT HOME WITH PT AND INSTRUCTED ON USE ALSO SENT HOME WITH NEBULIZER AND INSTRUCTED ON USE 1137-CALLED [facility], THEY REPORT THAT PT HAS ONLY BEEN PRESCRIBED SYMBICORT INHALER, AND LAST FILLED IT 06/07/2021. 1225--PT STATES SHE FEELS BETTER AFTER NEB TX. LUNGS ARE CLEAR WITH NO WHEEZING AND INCREASED AERATION ON AUSCULTATION. DECREASED COUGH. VITALS ARE STABLE, HR IN 70'S, O2 SATS 95-96% ON ROOM AIR. NO HYPOTENSION. AFEBRILE. DISCUSSED TEST RESULTS, ANTICIPATED COURSE, SYMPTOMATIC REVIEWED PRIOR RECORDS, MOST ARE OUTPATIENT PROCEDURES, WITH ONE ADMIT IN 2010 ECG Initial ECG Impression Date: Jul 20, 2022 Initial ECG Impression Time: 10:34 Initial ECG Rate: 81 Initial ECG Rhythm: Normal Sinus Initial ECG Intervals CA 142 QRS 87 QT/QTC 385/447 Initial ECG Impression: Nonspecific Changes Initial ECG Comparisson: Unchanged (NO CHANGE FROM 2015) Diagnostic Imaging Comments CXR--PER RADIOLOGIST REPORT AT 1117 FINDINGS: Normal heart size and central pulmonary vascularity. No focal pulmonary opacity. No pleural effusion or pneumothorax. No acute osseous findings. No significant change. IMPRESSION: No acute cardiopulmonary findings. Reviewed: Reviewed by Me Departure Impression Primary Impression: Acute bronchitis Disposition: HOME, SELF-CARE Condition: Improved Departure-Patient Inst. Decision time for Depature: 11:40 Referrals: LYSSA BO MD Patient Instructions: Bronchitis, Adult ED, How to Use a Nebulizer, Adult, How to Use a Spacer Add. Discharge Instructions: CONTINUE OMNICEF PRESCRIBED--TAKE UNTIL THEY ARE GONE YOU MAY TAKE TYLENOL NEEDED FOR PAIN OR FEVER LOTS OF CLEAR LIQUIDS STOP BROMFED DM FOLLOW UP WITH DR. BO IN 3-4 DAYS FOR FURTHER CARE--CALL ON FRIDAY TO SCHEDULE AN APPOINTMENT RETURN TO ER IF SYMPTOMS WORSEN All discharge instructions reviewed with patient and/or family. Voiced understanding. Scripts Budesonide/Formoterol Fumarate (Symbicort 160-4.5 Mcg Inhaler) 160 Mcg-4.5 Mcg/Actuation Hfa.aer.ad 2 PUFF IH BID, #1 EA Prov: CHARLI RAMAN DO 07/20/22 Promethazine/Dextromethorphan (Promethazine-Dm Syrup) 6.25 Mg-15 Mg/5 Ml Syrup 5 ML PO Q4H for Cough, #200 ML Prov: CHARLI RAMAN DO 07/20/22 Benzonatate (TESSALON PERLES) 100 Mg Capsule 200 MG PO TID, #50 CAP Prov: CHARLI RAMAN DO 07/20/22 Methylprednisolone (Medrol) 4 Mg Tab.ds.pk 4 MG PO UD for 6 Days, #21 PKG PER DOSE PACK INSTRUCTIONS Prov: CHARLI RAMAN DO 07/20/22 Ipratropium/Albuterol Sulfate (Iprat-Albut 0.5-3(2.5) mg/3 ml) 0.5 Mg-3 Mg (2.5 Mg Base)/3 Ml Ampul.neb 3 ML IH Q4H PRN for SHORTNESS OF BREATH, #1 EACH Prov: CHARLI RAMAN DO 07/20/22 Doxycycline Hyclate (Doxycycline Hyclate) 100 Mg Tablet 100 MG PO BID, #20 TAB 0 Refills Prov: CHARLI RAMAN DO 07/20/22 CHARLI RAMAN DO Jul 20, 2022 10:22
[2022-07-20 10:55] LABS: BASOPHILS % (AUTO) 1 % (0-10); EOSINOPHILS # (AUTO) 0.1 10^3/uL (0.0-0.3); EOSINOPHILS % (AUTO) 1 % (0-10); HEMATOCRIT 36 % (35-52); HEMOGLOBIN 12.3 g/dL (11.5-16.0); LYMPHOCYTES # (AUTO) 0.4 10^3/uL (1.0-4.0); LYMPHOCYTES % (AUTO) 6 % (12-44); MEAN CORPUSCULAR HEMOGLOBIN 30 pg (25-34); MEAN CORPUSCULAR HGB CONC 34 g/dL (32-36); MEAN CORPUSCULAR VOLUME 87 fL (80-99); MEAN PLATELET VOLUME 10.1 fL (9.0-12.2); MONOCYTES # (AUTO) 0.6 10^3/uL (0.0-1.0); MONOCYTES % (AUTO) 8 % (0-12); NEUTROPHILS # (AUTO) 5.5 10^3/uL (1.8-7.8); NEUTROPHILS % (AUTO) 83 % (42-75); PLATELET COUNT 277 10^3/uL (130-400); WHITE BLOOD COUNT 6.6 10^3/uL (4.3-11.0)
[2022-07-20 11:01] LABS: ALBUMIN 4.4 GM/DL (3.2-4.5)
[2022-07-20 11:02] LABS: CHLORIDE 94 MMOL/L (98-107); SODIUM 130 MMOL/L (135-145)
[2022-07-20 11:04] LABS: GLUCOSE 88 MG/DL (70-105); TOTAL PROTEIN 7.3 GM/DL (6.4-8.2)
[2022-07-20 11:05] LABS: CARBON DIOXIDE 24 MMOL/L (21-32)
[2022-07-20 11:06] LABS: BILIRUBIN,TOTAL 0.4 MG/DL (0.1-1.0); LYMPHOCYTES % (MANUAL) 4 %; MONOCYTES % (MANUAL) 6 %; NEUTROPHILS % (MANUAL) 90 %
--- NOTE | 2022-07-20 11:06 | Diagnostic Imaging Report ---
EXAM: CHEST 1 VIEW, AP/PA ONLY INDICATION: Dyspnea. COMPARISON: Chest radiograph 06/07/2020. FINDINGS: Normal heart size and central pulmonary vascularity. No focal pulmonary opacity. No pleural effusion or pneumothorax. No acute osseous findings. No significant change. IMPRESSION: No acute cardiopulmonary findings. Dictated by: Dictated on workstation # [id number]
[2022-07-20 11:07] LABS: ALKALINE PHOSPHATASE 74 U/L (40-136); PLATELET ESTIMATE ADEQUATE; PROTHROMBIN TIME PATIENT 13.9 SEC (12.2-14.7); RBC MORPH NORMAL
[2022-07-20 11:08] LABS: CREATININE SERUM 2.45 MG/DL (0.60-1.30); GFR ESTIMATED 21
[2022-07-20 11:09] LABS: BUN/CREATININE RATIO 13
[2022-07-20 11:10] LABS: ALANINE AMINOTRANSFERASE 19 U/L (0-55); MAGNESIUM 2.5 MG/DL (1.6-2.4)
[2022-07-20 11:11] LABS: CREATINE KINASE 83 U/L (29-168)
[2022-07-20 11:17] LABS: CREATINE KINASE MB 0.7 NG/ML (<6.6)
[2022-07-20] MEDS ORDERED: methylPREDNISolone 125 MG (Solu-MEDROL) VIAL IV STA (11:28)
[2022-07-20] MEDS ORDERED: cefTRIAXone 1 GM PRE-MIX 50 ML IV ONE (11:30)
[2022-07-20] MEDS ORDERED: RT-ALBUTEROL/IPRATROPIUM 3 ML (DUONEB) VIAL INH ONE (11:30)
[2022-07-20] MEDS ORDERED: AZITHROMYCIN INJECTION 500 MG in NS (IVPB) 250 ML IV ONE (11:30)
[2022-07-20] MEDS ORDERED: BENZ100C18 PO (11:45)
[2022-07-20] MEDS ORDERED: IPRA3AMP31 IH (11:45)
[2022-07-20] MEDS ORDERED: DOXY100T2 PO (11:45)
[2022-07-20] MEDS ORDERED: D-ME473S11 PO (11:45)
[2022-07-20] MEDS ORDERED: BUDE10.2 IH (11:45)
[2022-07-20] MEDS ORDERED: METH4TAB PO (11:45)
[2022-07-20 13:26] VITALS: BP 144/66
== END 2022-07-20 13:26 | disposition home or self-care (01) ==
LOC: EDUNIT# 10:19 → ER 10:22
DX: J20.9 Acute bronchitis, unspecified (principal); Z87.891 Personal history of nicotine dependence; Z79.51 Long term (current) use of inhaled steroids; Z20.822 Contact with and (suspected) exposure to COVID-19
CPT/HCPCS: 36415; 71045; 80053; 82550; 82553; 83735; 83874; 83880; 84484; 85007; 85027; 85610; 85730; 87636; 93005; 93041; 94640; 94664